=== PATIENT | male | born 1965 | race Caucasian/White ===

== ENCOUNTER 2016-05-20 09:56 | Emergency (ER) | payer OTHER ==
[2016-05-20 10:14] VITALS: BMI 38.6
[2016-05-20] MEDS ORDERED: NS 1,000 ML IV ONE (10:21)
--- NOTE | 2016-05-20 10:24 | EDPRACDOC ---
- General Information Information Source: Patient, [employer] Mode Of Arrival: Ambulance - History of Present Illness Onset: 2 days Medications/Treatment FAMILY MEDICINE PHYSICIAN ASSISTANT Meds/Treatments Given O2 via Cannula EMS Treatment BLS IV Yes HPI: PT STATES HE HAS HAD COUGH AND CONGESTION X 1 MTH, STATES COUGH IS NON-PROD, HAS FELT SOBR, PT STATES HE IS HAVING INCREASING GENERALIZED WEAKNESS, STATES THAT HE "PASSED OUT" THIS MORNING WHILE URINATING, PT DENIES PREVIOUS HX. PT DENIES CP. STATES HAS BEEN TO URGENT CARE X 2, HAS BEEN ON 2 DIFFERENT ANTIBIOTICS WITHOUT IMPROVEMENT. Duration: Minutes Presyncopal phase:: Reports: None Syncopal phase:: Reports: Other (WITH URINATION) Postsyncopal phase:: Reports: Rapid recovery Prehospital care: Reports: None History of: Denies: Atrial Fibrillation, Aneurysm, Syncope, Seizures, Hypoglycemia Associated Signs/Symptoms: Reports: Diaphoresis, Nausea, SOB, Vertigo. Denies: Abdominal pain, GI Bleed, Chest pain, Diarrhea, Fever, Headache, Palpitations, Vomiting <Hoda Apodaca - Last Filed: 05/20/16 13:14> - History of Present Illness Medications/Treatment FAMILY MEDICINE PHYSICIAN ASSISTANT Meds/Treatments Given O2 via Cannula EMS Treatment BLS IV Yes <Ivan Hurley - Last Filed: 05/20/16 13:23> - General Information Chief Complaint: Generalized Weakness Stated Complaint: SYNCOPE Time Seen by Provider: 05/20/16 10:16 Home Medications: Home Medications Albuterol Sulfate [Proair Hfa] 2 puff INH Q4H PRN 05/20/16 Allergies/Adverse Reactions: Allergies Allergy/AdvReac Type Severity Reaction Status Date / Time No Known Allergies Allergy Verified 05/20/16 11:22 - Treatment Prior to ED Arrival Reported Medications/Treatment FAMILY MEDICINE PHYSICIAN ASSISTANT Meds/Treatments Given O2 via Cannula EMS Treatment BLS IV Yes <Hoda Apodaca - Last Filed: 05/20/16 13:14> - Treatment Prior to ED Arrival Reported Medications/Treatment FAMILY MEDICINE PHYSICIAN ASSISTANT Meds/Treatments Given O2 via Cannula EMS Treatment BLS IV Yes <Ivan Hurley - Last Filed: 05/20/16 13:23> ED Past Medical History - History Reviewed Yes Nurses notes reviewed and agree except as marked No Past Medical History: Yes Patient has no past medical history - Patient Medical History Psychological History: Denies: Depression - Social Medical History Smoking Status: Never smoker ETOH: None Substance Abuse: None <Hoda Apodaca - Last Filed: 05/20/16 13:14> EDM Review of Systems - Review of Systems Constitutional: Chills, Fever, Diaphoresis, Fatigue, Weakness Eyes: negative: Blurred Vision, Double Vision Ears: negative: Drainage Throat: negative: Pain Nose: Congestion. negative: Discharge Respiratory: Cough, Shortness of Breath. negative: Wheezing Cardiovascular: Palpitations, Syncope. negative: Chest Pain Gastrointestinal: Nausea. negative: Diarrhea, Pain, Vomiting Genitourinary: negative: Dysuria, Frequency Neurological: Dizziness. negative: Headache, Numbness, Weakness Musculoskeletal: No Symptoms Reported Integumentary: No Symptoms Reported <Hoda Apodaca - Last Filed: 05/20/16 13:14> - Physical Exam Constitutional: Alert (Awake), No apparent distress Oriented to: Time, Person, Place Last recorded Vital Signs: Last Vital Signs Temp 97.9 F 05/20/16 10:10 Pulse 88 05/20/16 10:10 Resp 20 05/20/16 10:10 BP 132/68 05/20/16 10:10 Pulse Ox 89 L 05/20/16 10:10 Oxygen Pulse Oxygen Saturation 89 O2 Device Room Air Oxygen Flow Rate Fraction of Inspired Oxygen ( FIO2) - HEENT Head: Normal ( normocephalic) Eye Exam: Normal (PERRL, EOMI, Sclera white) Oropharynx: Normal (Pharynx:Moist without exudate,Gums-no swelling) Tympanic Membrane: Normal ENT EAC: Normal TMJ: Normal Nose: No Symptoms Reported (septum midline) Neck: Normal (FROM, trachea at midline) - Respiratory/Cardiovascular Respiratory: Normal - CTA (BBS clear to auscultation without adventitious sounds ) Cardiovascular: Normal (RRR without murmur, gallop or rub) - GI Auscultation: Normal (NABS) Palpation: Normal (Soft,No rebound or guarding, non distended) Tenderness: Non tender Pena's Sign: Negative - Musculoskeletal Back: Normal (Non-Tender) Extremities: Normal (Normal tone, Pulses 2+ No cyanosis or edema, FROM) - Integumentary Skin: Normal, Warm, Dry Lymphatics: Normal (no adenopathy) - Neurologic Memory Impaired: Normal Motor Function: Normal (Normal tone, Pulses 2+ No cyanosis or edema, FROM) Cranial Nerve: Normal (CN II-X11 intact sensation, strength 5/5) Cerebellar: Normal Mood Description: Normal Perception: Normal <Hoda Apodaca - Last Filed: 05/20/16 13:14> - Physical Exam Last recorded Vital Signs: Last Vital Signs Temp 97.9 F 05/20/16 10:10 Pulse 102 05/20/16 12:00 Resp 18 05/20/16 12:00 BP 134/72 05/20/16 12:00 Pulse Ox 97 05/20/16 12:00 Oxygen Pulse Oxygen Saturation 97 O2 Device Room Air Oxygen Flow Rate Fraction of Inspired Oxygen ( 1 FIO2) <HurleyIvan - Last Filed: 05/20/16 13:23> - Differential Diagnosis CVA, Dysrhythmia, Dehydration, Electrolyte Disorder, Myocardial Infarction, Pulmonary Embolus, TIA - Re-evaluation Re-evaluation 1 Re-evaluation Time: 12:50 (NO DISTRESS) - Results 05/20/16 10:19 05/20/16 11:20 05/20/16 12:49 Laboratory Results - last 24 hr 05/20/16 05/20/16 05/20/16 10:19 10:19 11:20 WBC 11.8 H RBC 5.22 Hgb 16.0 Hct 46.9 MCV 90 MCH 30.7 MCHC 34.2 RDW 12.6 Plt Count 123 L MPV 8.4 Neut % (Auto) 70.5 Lymph % (Auto) 22.5 Thayer % (Auto) 4.0 Eos % (Auto) 2.2 Baso % (Auto) 0.8 Absolute Neuts (auto) 8.26 H Absolute Lymphs (auto) 2.60 PT 11.0 INR 1.1 APTT 23.1 Sodium 140 Potassium 4.5 Chloride 105 Carbon Dioxide 24 Anion Gap 16 BUN 21 H Creatinine 1.20 Estimated GFR (MDRD) > 60 Glucose 116 H Calculated Osmolality 273 Calcium 8.3 L Corrected Calcium 8.5 Total Bilirubin 1.6 H AST 54 ALT 89 H Alkaline Phosphatase 91 Troponin I 0.19 Ajt-N-Wyichbscijv Pept 594 H Total Protein 6.9 Albumin 3.8 Lipase 52 - EKG EKG #1 EKG Time: 10:21 -: Yes EKG interpreted by me Rate: bpm: 99 [place]: RAD Rhythm: NSR, PVCs Block: None Hypertrophy: None ST: Nonsp Comparison: 12/18/15 (RATE INCREASED TODAY O/W NO CHANGE) - Diagnostic Imaging CT HEAD Image interpreted by: Radiologist CT HEAD WITHOUT CONTRAST TECHNIQUE: Contiguous axial images were obtained from the base of the skull through the vertex without intravenous contrast. COMPARISON: CT chest reported separately. FINDINGS: No evidence for acute infarction, hemorrhage, mass lesion, hydrocephalus, or extra-axial fluid. No atrophy or white matter disease. Intact calvarium. No acute sinus or mastoid disease. IMPRESSION: Negative exam. CTA CHEST Image interpreted by: Radiologist CT ANGIOGRAPHY CHEST WITH CONTRAST TECHNIQUE: Multidetector CT imaging of the chest was performed using the standard protocol during bolus administration of intravenous contrast. Multiplanar CT image reconstructions and MIPs were obtained to evaluate the vascular anatomy. CONTRAST: 80 cc Isovue 370 intravenous COMPARISON: None. FINDINGS: Head CT inappropriately linked to this study and will be reported separately. THORACIC INLET/BODY WALL: No acute abnormality. MEDIASTINUM: Large volume acute thrombus to all lobes of the bilateral lungs, including saddle embolus. There is right heart strain with RV to LV ratio of 1.8. The presence of right heart strain has been associated with an increased risk of morbidity and mortality. No pulmonary infarct is noted. No pericardial effusion. No evidence of acute aortic syndrome. LUNG WINDOWS: Negative for failure or lung infarct. UPPER ABDOMEN: No acute findings. OSSEOUS: No acute fracture. No suspicious lytic or blastic lesions. Critical Value/emergent results were called by telephone at the time of interpretation on 05/20/2016 at 12:44 pm to HODA BRODERICK, who verbally acknowledged these results. Review of the MIP images confirms the above findings. IMPRESSION: Large volume acute pulmonary embolism with right heart strain (RV/LV Ratio = 1.8) consistent with at least submassive (intermediate risk) PE. - Additional Information DISCUSSED WITH DR HURLEY, HE WILL DISCUSS WITH [facility] AT [facility]. <Hoda Apodaca - Last Filed: 05/20/16 13:14> - Results 05/20/16 10:19 05/20/16 11:20 WBC 11.8 xk/uL (3.8-10.8) H 05/20/16 10:19 RBC 5.22 xM/uL (4.70-6.10) 05/20/16 10:19 Hgb 16.0 g/dL (14.0-18.0) 05/20/16 10:19 Hct 46.9 % (42-52) 05/20/16 10:19 MCV 90 fL (80-94) 05/20/16 10:19 MCH 30.7 pg (27-32) 05/20/16 10:19 MCHC 34.2 g/dl (33-36) 05/20/16 10:19 RDW 12.6 % (11.5-14.5) 05/20/16 10:19 Plt Count 123 xk/uL (130-400) L 05/20/16 10:19 MPV 8.4 fL (7.4-10.4) 05/20/16 10:19 Neut % (Auto) 70.5 % (45-76) 05/20/16 10:19 Lymph % (Auto) 22.5 % (17-44) 05/20/16 10:19 Thayer % (Auto) 4.0 % (3-10) 05/20/16 10:19 Eos % (Auto) 2.2 % (0-5) 05/20/16 10:19 Baso % (Auto) 0.8 % (0-2) 05/20/16 10:19 Absolute Neuts (auto) 8.26 xk/uL (1.7-8.2) H 05/20/16 10:19 Absolute Lymphs (auto) 2.60 xk/uL (0.65-4.75) 05/20/16 10:19 PT 11.0 SEC (9.2-11.2) 05/20/16 10:19 INR 1.1 05/20/16 10:19 APTT 23.1 SEC (22-35) 05/20/16 10:19 Sodium 140 mEq/L (137-146) 05/20/16 11:20 Potassium 4.5 mEq/L (3.5-5.1) 05/20/16 11:20 Chloride 105 mEq/L (98-107) 05/20/16 11:20 Carbon Dioxide 24 mMOL/L (22-33) 05/20/16 11:20 Anion Gap 16 mEq/L (8-16) 05/20/16 11:20 BUN 21 MG/DL (9-20) H 05/20/16 11:20 Creatinine 1.20 MG/DL (0.66-1.25) 05/20/16 11:20 Estimated GFR (MDRD) > 60 mL/min (>=60) 05/20/16 11:20 Glucose 116 MG/DL (70-99) H 05/20/16 11:20 Calculated Osmolality 273 MOs/Kg (270-290) 05/20/16 11:20 Calcium 8.3 MG/DL (8.4-10.2) L 05/20/16 11:20 Corrected Calcium 8.5 MG/DL (8.4-10.2) 05/20/16 11:20 Total Bilirubin 1.6 MG/DL (0.2-1.3) H 05/20/16 11:20 AST 54 IU/L (17-59) 05/20/16 11:20 ALT 89 IU/L (21-72) H 05/20/16 11:20 Alkaline Phosphatase 91 IU/L (38-126) 05/20/16 11:20 Troponin I 0.19 ng/mL (<.04) 05/20/16 11:20 Ipk-A-Dqrqhszqynr Pept 594 pg/mL (0-450) H 05/20/16 11:20 Total Protein 6.9 G/DL (6.3-8.2) 05/20/16 11:20 Albumin 3.8 G/DL (3.5-5.0) 05/20/16 11:20 Lipase 52 U/L (23-300) 05/20/16 11:20 Urine Color Yellow 05/20/16 12:08 Urine Clarity Clear 05/20/16 12:08 Urine pH 6.0 (5.0-8.0) 05/20/16 12:08 Ur Specific [place] 1.025 (1.003-1.035) 05/20/16 12:08 Urine Protein 1+ (NEG/TRACE) H 05/20/16 12:08 Urine Glucose (UA) Neg (NEGATIVE) 05/20/16 12:08 Urine Ketones Neg (NEGATIVE) 05/20/16 12:08 Urine Occult Blood Neg (NEG/TRACE) 05/20/16 12:08 Urine Nitrite Neg (NEGATIVE) 05/20/16 12:08 Urine Bilirubin Neg (NEGATIVE) 05/20/16 12:08 Urine Urobilinogen <2.0 MG/DL (0-1) 05/20/16 12:08 Ur Leukocyte Esterase Neg (NEGATIVE) 05/20/16 12:08 Urine RBC 0-2 (0-2) 05/20/16 12:08 Urine WBC 0-2 (0-2) 05/20/16 12:08 Urine Bacteria Few (NEG/FEW) 05/20/16 12:08 Hyaline Casts 2-5 (0-2) H 05/20/16 12:08 Urine Mucus Mod (NEG/OCC) H 05/20/16 12:08 Lab Results 05/20/16 05/20/16 05/20/16 12:08 11:20 10:19 WBC RBC Hgb Hct MCV MCH MCHC RDW Plt Count MPV Neut % (Auto) Lymph % (Auto) Thayer % (Auto) Eos % (Auto) Baso % (Auto) Absolute Neuts (auto) Absolute Lymphs (auto) PT 11.0 INR 1.1 APTT 23.1 Sodium 140 Potassium 4.5 Chloride 105 Carbon Dioxide 24 Anion Gap 16 BUN 21 H Creatinine 1.20 Estimated GFR (MDRD) > 60 Glucose 116 H Calculated Osmolality 273 Calcium 8.3 L Corrected Calcium 8.5 Total Bilirubin 1.6 H AST 54 ALT 89 H Alkaline Phosphatase 91 Troponin I 0.19 Ygo-K-Gwyekwrnpbp Pept 594 H Total Protein 6.9 Albumin 3.8 Lipase 52 Urine Color Yellow Urine Clarity Clear Urine pH 6.0 Ur Specific [place] 1.025 Urine Protein 1+ H Urine Glucose (UA) Neg Urine Ketones Neg Urine Occult Blood Neg Urine Nitrite Neg Urine Bilirubin Neg Urine Urobilinogen <2.0 Ur Leukocyte Esterase Neg Urine RBC 0-2 Urine WBC 0-2 Urine Bacteria Few Hyaline Casts 2-5 H Urine Mucus Mod H 05/20/16 10:19 WBC 11.8 H RBC 5.22 Hgb 16.0 Hct 46.9 MCV 90 MCH 30.7 MCHC 34.2 RDW 12.6 Plt Count 123 L MPV 8.4 Neut % (Auto) 70.5 Lymph % (Auto) 22.5 Thayer % (Auto) 4.0 Eos % (Auto) 2.2 Baso % (Auto) 0.8 Absolute Neuts (auto) 8.26 H Absolute Lymphs (auto) 2.60 PT INR APTT Sodium Potassium Chloride Carbon Dioxide Anion Gap BUN Creatinine Estimated GFR (MDRD) Glucose Calculated Osmolality Calcium Corrected Calcium Total Bilirubin AST ALT Alkaline Phosphatase Troponin I Ail-I-Melzzifkxlu Pept Total Protein Albumin Lipase Urine Color Urine Clarity Urine pH Ur Specific [place] Urine Protein Urine Glucose (UA) Urine Ketones Urine Occult Blood Urine Nitrite Urine Bilirubin Urine Urobilinogen Ur Leukocyte Esterase Urine RBC Urine WBC Urine Bacteria Hyaline Casts Urine Mucus <Ivan Hurley - Last Filed: 05/20/16 13:23> ED Critical Care Note - Critical Care Note Total Time (mins): 60 <Ivan Hurley - Last Filed: 05/20/16 13:23> - Departure Disposition: Trans. to Other Hospital Education/Counseling Given To: Patient, Family Member Education/Counseling Given Regarding: Diagnosis, Treatment, Prognosis, Follow Up Decision to Transfer Time: 13:00 <Hoda Apodaca - Last Filed: 05/20/16 13:14> - Departure Yes I personally saw and evaluated the patient. - Physician Consulted Hospitalist Time Called: 13:22 Provider Called: DR CASE Time Composition Floor Layer Returned Call: 13:22 (WILL ACCEPT TO [facility]) <Ivan Hurley - Last Filed: 05/20/16 13:23> - Departure Condition: Stable Final Diagnosis: Pulmonary emboli Qualifiers: Pulmonary embolism type: saddle Chronicity: acute Acute cor pulmonale presence : with acute cor pulmonale Qualified Code(s): I26.02 - Saddle embolus of pulmonary artery with acute cor pulmonale Referrals: None,No Provider [Primary Care Provider] - One Week
[2016-05-20 10:44] LABS: AUTOMATED BASOPHIL 0.8 % (0-2); AUTOMATED EOSINOPHIL 2.2 % (0-5); AUTOMATED LYMPH 22.5 % (17-44); AUTOMATED NEUTROPHIL 70.5 % (45-76); MPV 8.4 fL (7.4-10.4)
[2016-05-20] MEDS ORDERED: Pharmacy Review for Metformin - IV Contrast Given SCH (11:00)
[2016-05-20 11:01] LABS: PARTIAL THROMB. TIME 23.1 SEC (22-35); PT-INR 1.1
[2016-05-20 11:54] LABS: BLOOD UREA NITROGEN 21 MG/DL (9-20); CALC CORRECTED 8.5 MG/DL (8.4-10.2); CALCIUM 8.3 MG/DL (8.4-10.2); CALCULATED OSMOLALITY 273 MOs/Kg (270-290); CHLORIDE 105 mEq/L (98-107); GLUCOSE 116 MG/DL (70-99); SODIUM LEVEL 140 mEq/L (137-146); TOTAL PROTEIN 6.9 G/DL (6.3-8.2)
--- NOTE | 2016-05-20 12:45 | DIRPT ---
CLINICAL DATA: Syncope. Dizziness off and on for 2-3 weeks. EXAM: CT HEAD WITHOUT CONTRAST TECHNIQUE: Contiguous axial images were obtained from the base of the skull through the vertex without intravenous contrast. COMPARISON: CT chest reported separately. FINDINGS: No evidence for acute infarction, hemorrhage, mass lesion, hydrocephalus, or extra-axial fluid. No atrophy or white matter disease. Intact calvarium. No acute sinus or mastoid disease. IMPRESSION: Negative exam. Electronically Signed By: Rolly Arroyo M.D. On: 05/20/2016 12:42
--- NOTE | 2016-05-20 12:50 | DIRPT ---
CLINICAL DATA: Syncope and shortness of breath. EXAM: CT ANGIOGRAPHY CHEST WITH CONTRAST TECHNIQUE: Multidetector CT imaging of the chest was performed using the standard protocol during bolus administration of intravenous contrast. Multiplanar CT image reconstructions and MIPs were obtained to evaluate the vascular anatomy. CONTRAST: 80 cc Isovue 370 intravenous COMPARISON: None. FINDINGS: Head CT inappropriately linked to this study and will be reported separately. THORACIC INLET/BODY WALL: No acute abnormality. MEDIASTINUM: Large volume acute thrombus to all lobes of the bilateral lungs, including saddle embolus. There is right heart strain with RV to LV ratio of 1.8. The presence of right heart strain has been associated with an increased risk of morbidity and mortality. No pulmonary infarct is noted. No pericardial effusion. No evidence of acute aortic syndrome. LUNG WINDOWS: Negative for failure or lung infarct. UPPER ABDOMEN: No acute findings. OSSEOUS: No acute fracture. No suspicious lytic or blastic lesions. Critical Value/emergent results were called by telephone at the time of interpretation on 05/20/2016 at 12:44 pm to HODA BRODERICK, who verbally acknowledged these results. Review of the MIP images confirms the above findings. IMPRESSION: Large volume acute pulmonary embolism with right heart strain (RV/LV Ratio = 1.8) consistent with at least submassive (intermediate risk) PE. Electronically Signed By: Gabriel Campbell M.D. On: 05/20/2016 12:47
[2016-05-20 12:52] LABS: LEUKOCYTES/URINE NEG (NEGATIVE); NITRITE/URINE NEG (NEGATIVE); RBC/URINE 0-2 (0-2); URINE OCCULT BLOOD NEG (NEG/TRACE); WBC/URINE 0-2 (0-2)
[2016-05-20] MEDS ORDERED: HEPARIN 5000 UNITS/ML VIAL IV ONE ×2 (13:12→14:00)
[2016-05-20] MEDS ORDERED: HEPARIN 500 ML IV SCH (14:00)
[2016-05-20 15:03] VITALS: BP 112/82; PULSE 96; TEMP 97.9
== END 2016-05-20 15:00 | disposition home or self-care (01) ==
LOC: ED 09:56
DX: I26.02 Saddle embolus of pulmonary artery with acute cor pulmonale (principal); R06.02 Shortness of breath
CPT/HCPCS: 36415; 70450; 71275; 80053; 81001; 83690; 83880; 84484; 85025; 85610; 85730; 87040; 93005; 96361; 96365; 96375; 99284; A9698; J1644